=== PATIENT | male | born 1975 | race Caucasian/White ===

== ENCOUNTER → 2021-07-24 09:30 | Outpatient (CLI) | payer OTHER, SELFPAY | PROVIDERS: Visit Provider Nurse Practitioner | DX: Z20.822 Contact with and (suspected) exposure to COVID-19 (principal); U07.1 COVID-19 | CPT/HCPCS: C9803; U0003; U0005 ==

== ENCOUNTER → 2021-08-28 11:04 | Outpatient (CLI) | payer OTHER, SELFPAY | PROVIDERS: Visit Provider Nurse Practitioner | DX: Z20.822 Contact with and (suspected) exposure to COVID-19 (principal) | CPT/HCPCS: C9803; U0003; U0005 ==

== ENCOUNTER → 2021-12-02 09:47 | Outpatient (CLI) | payer OTHER, SELFPAY | PROVIDERS: Visit Provider Nurse Practitioner | DX: Z20.822 Contact with and (suspected) exposure to COVID-19 (principal) | CPT/HCPCS: C9803; U0003; U0005 ==

== ENCOUNTER → 2022-02-13 07:41 | Outpatient (CLI) | payer OTHER, SELFPAY ==
--- NOTE | 2022-02-13 07:44 | US_ITS ---
FINAL REPORT CLINICAL HISTORY: ELEVATED LIVER ENZYMES; diabetic; obesity FINDINGS: RIGHT UPPER QUADRANT ULTRASOUND Sonographic images of the right upper quadrant were obtained. The pancreas is partially obscured. There is fatty infiltration of the liver. The gallbladder appears normal without evidence of gallstones. The common duct is normal measuring 3 mm. Limited images of the right kidney are normal. IMPRESSION: Fatty liver. Reviewed, Interpreted and Dictated by Mayo Zimmerman III, MD Transcribed by Sarah Morrissey Authenticated by Mayo Zimmerman III, MD on 02/13/2022 10:01:59 AM [facility][1]
== END ==
PROVIDERS: PCP Nurse Practitioner Family; Visit Provider Nurse Practitioner Family
DX: R74.8 Abnormal levels of other serum enzymes (principal)
CPT/HCPCS: 76705

== ENCOUNTER → 2023-05-06 10:41 | Outpatient (CLI) | payer OTHER, SELFPAY ==
[2023-05-06 11:40] LABS: Iron 94 ug/dL (49-181); Magnesium 1.5 mg/dl (1.6-2.3)
[2023-05-06 11:49] LABS: Total Iron Binding Capacity 376 ug/dL (261-462)
[2023-05-06 12:16] LABS: Ferritin 143 ng/ml (17.9-464)
== END ==
PROVIDERS: PCP Nurse Practitioner Family; Visit Provider Nurse Practitioner Family
DX: D75.1 Secondary polycythemia (principal); E66.01 Morbid (severe) obesity due to excess calories; G25.81 Restless legs syndrome; G47.8 Other sleep disorders; R06.83 Snoring; R25.2 Cramp and spasm; R53.83 Other fatigue
CPT/HCPCS: 36415; 82728; 83540; 83550; 83735

== ENCOUNTER → 2023-06-04 14:08 | Outpatient (CLI) | payer OTHER, SELFPAY ==
--- NOTE | 2023-06-04 14:13 | XR_ITS ---
FINAL REPORT TECHNIQUE: 5 views CLINICAL HISTORY: LUMBAGO W/SCIATICA,CHRONIC PAIN FINDINGS: There are chronic wedge compression fractures of T11 and T12. No lumbar fracture is identified. There is advanced facet arthropathy throughout the lumbar spine likely contributing to canal stenosis and neuroforaminal narrowing. IMPRESSION: Significant degenerative changes, predominantly involving the posterior elements. Reviewed, Interpreted and Dictated by Radha Rivas MD Transcribed by Sheryl David Authenticated and [facility]
== END ==
PROVIDERS: PCP Nurse Practitioner Family; Visit Provider Nurse Practitioner Family
DX: M54.41 Lumbago with sciatica, right side (principal); G89.29 Other chronic pain
CPT/HCPCS: 72110

== ENCOUNTER → 2023-06-07 13:48 | Outpatient (CLI) | payer OTHER, SELFPAY | PROVIDERS: PCP Nurse Practitioner Family; Visit Provider Nurse Practitioner Family | DX: G47.30 Sleep apnea, unspecified (principal); R06.83 Snoring | CPT/HCPCS: G0399 ==

== ENCOUNTER → 2023-06-22 13:06 | Outpatient (CLI) | payer OTHER, SELFPAY ==
--- NOTE | 2023-06-22 13:38 | MR_ITS ---
FINAL REPORT CLINICAL HISTORY: DORSALGIA, UNSPECIFIED. LUMBAGO WITH SCIATICA, RIGHT SIDE. NUMBNESS IN LEFT LEG. PAIN IN RIGHT LEG. COMPARISON: None FINDINGS: Multiplanar MR imaging of the lumbar spine was performed without contrast. On the sagittal T2-weighted images, disc degeneration is seen at multiple levels. The vertebral alignment is normal. There is a moderate chronic T11 compression fracture. No bony mass is identified. The conus has an unremarkable appearance. T12-L1: An annular bulge is present with a small left foraminal disc protrusion, facet osteoarthropathy, and osteophyte formation. No significant canal or neural foraminal stenosis is present. L1-2: An annular bulge is present with facet osteoarthropathy and osteophyte formation. There is mild left neural foraminal narrowing. No significant canal stenosis is present. L2-3: An annular bulge is present, with facet osteoarthropathy and mild bilateral neural foraminal narrowing. No significant canal stenosis is present at this level. L3-4: An annular bulge is present with mild bilateral neural foraminal narrowing and mild facet osteoarthropathy. There is no significant canal stenosis at this level. L4-5: An annular bulge is present, with facet osteoarthropathy. There is a central disc protrusion which contacts the right L5 nerve root. There is mild AP canal diameter stenosis with an AP canal diameter of 8 mm, and mild bilateral neural foraminal narrowing. L5-S1: An annular bulge is present, with facet osteoarthropathy. There is a small central disc protrusion with left lateral recess stenosis and left S1 nerve root impingement. There is lumbarization of the S1 vertebral body. IMPRESSION: Multilevel degenerative disc disease and spondylosis as described, most severe at the L4-5 and L5-S1 levels. Reviewed, Interpreted and Dictated by Mayo Zimmerman III, MD Transcribed by Sonam Edmond Authenticated and [facility]
== END ==
PROVIDERS: PCP Nurse Practitioner Family; Visit Provider Nurse Practitioner Family
DX: M54.9 Dorsalgia, unspecified (principal); M54.41 Lumbago with sciatica, right side
CPT/HCPCS: 72148; 76376

== ENCOUNTER 2023-10-05 16:24 | Emergency (ER) | payer OTHER, SELFPAY ==
[2023-10-05 16:40] VITALS: BP 135/96; PULSE 117; RESP 18; TEMP 37.3; O2SAT 97; BMI 41.8
--- NOTE | 2023-10-05 16:54 | EXP.UTC ---
Discharge Plan Disposition Patient Disposition: Home, Self-Care Condition: Good Prescriptions Prescriptions: No Action Ozempic 0.25 mg or 0.5 mg (2 mg/3 mL) pen injector 0.25 mg SQ WEEKLY Patient Comments: INJECT 0.5MG UNDER THE SKIN ONCE WEEKLY DIRECTED sertraline 50 mg tablet 50 mg PO DAILY levothyroxine 25 mcg tablet 25 mcg PO DAILY Farxiga 10 mg tablet 10 mg PO DAILY Patient Comments: TAKE 1 TABLET BY MOUTH EVERY DAY metformin 1,000 mg tablet 1,000 mg PO BID atorvastatin 40 MG tablet 40 mg PO HS amlodipine 10 MG tablet 10 mg PO DAILY losartan 100 MG tablet 100 mg PO DAILY hydrochlorothiazide 12.5 MG tablet 12.5 mg PO DAILY albuterol sulfate 18 GM HFA aerosol inhaler 1 - 2 puffs inhalation Q4-6H PRN (Reason: Shortness Of Breath Or Wheezing) Qty: 1 0RF azelastine 137 mcg (0.1 %) aerosol,spray 2 spray INTRANASAL BID Patient Comments: USE 2 SPRAYS IN EACH NOSTRIL TWICE DAILY Referrals Follow up/Referrals: Danita Sanabria APRN [Primary Care Provider] - See instructions Activity Restrictions/Add. Instructions Additional Instructions/Restrictions: Drink plenty of fluids. Take tylenol or ibuprofen for pain or fever. Take the medications as directed. Follow up with your regular doctor. GO TO THE ER FOR ANY WORSENING SYMPTOMS Clinical Impressions Clinical Impression: Pharyngitis, Sinusitis Stand Alone Forms Stand Alone Forms: Work/School Release Instructions Patient Instructions: DI for Pharyngitis/Tonsillopharyngitis -- Adult, DI for Sinusitis Discharge ED Provider: Harry Eubanks [facility] General Stated complaint: st, body ache Time Seen by Provider: 10/05/23 16:53 History of Present Illness Provider Complaint: He states that for the past 2 days he has had sore throat, chills, body aches and low grade fever. Related Data Home Medications Medication Instructions Recorded Confirmed amlodipine 10 mg tablet 10 mg PO DAILY Hypertension 09/12/19 10/05/23 atorvastatin 40 mg tablet 40 mg PO HS Cholesterol 09/12/19 10/05/23 hydrochlorothiazide 12.5 mg tablet 12.5 mg PO DAILY Hypertension 09/12/19 10/05/23 losartan 100 mg tablet 100 mg PO DAILY Hypertension 09/12/19 10/05/23 dapagliflozin propanediol 10 mg 10 mg PO DAILY 05/06/23 10/05/23 tablet (Farxiga) levothyroxine 25 mcg tablet 25 mcg PO DAILY 05/06/23 10/05/23 semaglutide 0.25 mg or 0.5 mg (2 0.25 mg SQ WEEKLY 05/06/23 10/05/23 mg/3 mL) subcutaneous pen injector (Ozempic) sertraline 50 mg tablet 50 mg PO DAILY 05/06/23 10/05/23 metformin 1,000 mg tablet 1,000 mg PO BID 08/05/23 10/05/23 azelastine 137 mcg (0.1 %) nasal 2 spray intranasal BID 10/05/23 10/05/23 spray aerosol Previous Rx's Medication Instructions Recorded albuterol sulfate 90 mcg/actuation 1 - 2 puffs inhalation Q4-6H PRN 01/24/20 aerosol inhaler Shortness Of Breath Or Wheezing #1 inh Allergies Allergy/AdvReac Type Severity Reaction Status Date / Time No Known Allergies Allergy Verified 10/05/23 17:00 [facility] Disclaimer: The information contained in this section may have been updated after the patient was seen, as this information can be updated by other users. Medical History (Updated 10/05/23 @ 17:28 by Harry Eubanks APRN) Diabetes Hypertension Hypothyroidism IRENE (obstructive sleep apnea) Restless leg syndrome Tobacco abuse Family History Other Cancer Coronary artery disease Diabetes Heart attack Social History Smoking Status: Current every day smoker tobacco type: cigarettes packs per day: 1 alcohol intake: never current occupational status: employed Travel in the last 8 weeks: None ROS Obtained: Yes All systems reviewed & no additional complaints except as documented Constitutional Constitutional: Reports chi
[2023-10-05 17:13] LABS: UTC Strep Screen (Rapid) Negative (Negative)
[2023-10-05 17:41] VITALS: BP 135/96; PULSE 117; RESP 18; TEMP 37.3; O2SAT 97
== END 2023-10-05 17:41 | disposition home or self-care (01) ==
PROVIDERS: Emergency Provider Nurse Practitioner Family; PCP Nurse Practitioner Family
DX: J02.9 Acute pharyngitis, unspecified (principal); J01.90 Acute sinusitis, unspecified; R50.9 Fever, unspecified; M79.18 Myalgia, other site; F17.210 Nicotine dependence, cigarettes, uncomplicated; E11.9 Type 2 diabetes mellitus without complications; E03.9 Hypothyroidism, unspecified; I10 Essential (primary) hypertension; Z79.84 Long term (current) use of oral hypoglycemic drugs; Z79.85 Long-term (current) use of injectable non-insulin antidiabetic drugs
CPT/HCPCS: 87635; 87880; 99204; 99212; G0463

== ENCOUNTER → 2023-10-25 07:14 | Outpatient (CLI) | payer OTHER, SELFPAY ==
[2023-10-25 16:56] LABS: Adenovirus,PCR Not Detected (NotDetected); Coronavirus 19, PCR Not Detected (NotDetected); Coronavirus 229E Not Detected (NotDetected); Coronavirus NL63 Not Detected (NotDetected); Coronavirus OC43 Not Detected (NotDetected); Coronovirus HKU1,PCR Not Detected (NotDetected); Human Metapneumovirus Not Detected (NotDetected); Influenza A, PCR Not Detected (NotDetected); Influenza AH1, 2009 Not Detected (NotDetected); Influenza AH1, PCR Not Detected (NotDetected); Influenza AH3,PCR Not Detected (NotDetected); Influenza B, PCR Not Detected (NotDetected); Parainfluenza 1, PCR Not Detected (NotDetected); Parainfluenza 2, PCR Not Detected (NotDetected); Parainfluenza 3, PCR Not Detected (NotDetected); Parainfluenza 4, PCR Not Detected (NotDetected); Respiratory Syncytial Virus Not Detected (NotDetected); Rhinovirus/Enterovirus Not Detected (NotDetected)
== END ==
PROVIDERS: PCP Nurse Practitioner Family; Visit Provider Nurse Practitioner Family
DX: J02.9 Acute pharyngitis, unspecified (principal); B95.0 Streptococcus, group A, as the cause of diseases classified elsewhere
CPT/HCPCS: 87070; 87632; 87635